=== PATIENT | male | born 1990 | race Caucasian/White ===

== ENCOUNTER 2017-06-20 02:44 | Emergency (ER) | payer OTHER ==
[~2017-06-20 02:44] MED LIST: ALBUAER INH
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
[2017-06-20 03:53] LABS: BASO % 0.3 %; BASO ABS # 0.03 K/uL (0-0.2); COMPLETE YES; EOS % 0.8 %; IG% 0.3 %; LYMPH % 27.3 %; LYMPH ABS # 2.54 K/uL (1.2-3.4); MEAN CELL VOLUME 86.6 fL (80-100); MEAN CORPUSCULAR HEMOGLOBIN 31.4 pg (25-34); MEAN CORPUSCULAR HGB CONC 36.3 g/dl (32-36); MEAN PLATELET VOLUME 8.8 fL (7.4-10.4); MONO % 7.5 %; NEUT % 63.8 %; PLATELET COUNT 258 K/uL (130-400); RED BLOOD COUNT 4.62 M/uL (4.7-6.1); WHITE BLOOD COUNT 9.31 K/uL (4.8-10.8)
[2017-06-20 04:23] LABS: BLOOD UREA NITROGEN 11 mg/dl (7-18); BUN/CREATININE RATIO 11.7 (10-20); CALCIUM 8.4 mg/dl (8.5-10.1); CARBON DIOXIDE 23 mmol/L (21-32); CHLORIDE 102 mmol/L (98-107); CREATININE 0.95 mg/dl (0.60-1.40); GLUCOSE 112 mg/dl (70-99); POTASSIUM 3.5 mmol/L (3.5-5.1); SODIUM 136 mmol/L (136-145)
[2017-06-20 05:24] VITALS: TEMP 36.4
[2017-06-20] MEDS ORDERED: STR10 PO (06:42)
[2017-06-20] MEDS ORDERED: MULT-506 PO (06:43)
[2017-06-20] MEDS ORDERED: QUET1TAB32 PO (06:43)
[2017-06-20 10:22] VITALS: O2SAT 100
[2017-06-20 10:50] VITALS: BP 117/68; PULSE 94
== END 2017-06-20 10:50 | disposition home or self-care (01) ==
LOC: EDBD 02:44 → C.EDB 02:46
DX: F10.920 Alcohol use, unspecified with intoxication, uncomplicated (principal)

== ENCOUNTER 2017-07-20 14:36 | Emergency (ER) | payer OTHER ==
[~2017-07-20] VITALS: Ht 185.4 cm; Wt 112.9 kg
[~2017-07-20 14:36] MED LIST changes: -ALBUAER INH; +MULT-506 PO; +QUET1TAB32 PO; +STR10 PO
[2017-07-20 14:57] VITALS: TEMP 37; Ht 185.4 cm; Wt 112.9 kg
[2017-07-20] MEDS ORDERED: ATOM60CA3 PO (15:18)
[2017-07-20] MEDS ORDERED: ATOM10CA PO (15:18)
[2017-07-20 16:03] LABS: BASO % 0.3 %; BASO ABS # 0.04 K/uL (0-0.2); COMPLETE YES; EOS % 0.3 %; HEMATOCRIT 41.5 % (42-52); IG% 0.3 %; LYMPH % 13.6 %; LYMPH ABS # 2.01 K/uL (1.2-3.4); MEAN CELL VOLUME 88.7 fL (80-100); MEAN CORPUSCULAR HEMOGLOBIN 32.1 pg (25-34); MEAN CORPUSCULAR HGB CONC 36.1 g/dl (32-36); MEAN PLATELET VOLUME 9.4 fL (7.4-10.4); MONO % 6.7 %; NEUT % 78.8 %; PLATELET COUNT 291 K/uL (130-400); RED BLOOD COUNT 4.68 M/uL (4.7-6.1); WHITE BLOOD COUNT 14.78 K/uL (4.8-10.8)
[2017-07-20 16:24] LABS: BUN/CREATININE RATIO 14.1 (10-20); CALCIUM 9.2 mg/dl (8.5-10.1); CREATININE 1.31 mg/dl (0.60-1.40); POTASSIUM 4.2 mmol/L (3.5-5.1)
[2017-07-20 16:27] LABS: ALB/GLOB RATIO 1.2 (0.9-2)
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
[2017-07-20 16:35] VITALS: BP 157/109; PULSE 100; O2SAT 97
[2017-07-20 16:38] LABS: HEPATITIS B AB POS
--- NOTE | 2017-07-29 15:01 | Pharmacy Progress Note ---
ED Pharmacist Progress Note Date of Service: Jul 29, 2017. Received call 1/2 AM asking about 28 day post-exposure prophylaxis for blood exposure that was supposed to be sent to [facility] as patient has not received medications. Reviewed notes from 07/20 visit. Patient had paperwork kit filled out by provider at [facility]. Patient state prescription needs to come from emergency department for shaneka lockwood. Called [facility] [phone] and was transferred to "[facility]". He informed me that the kit was received and paperwork was signed but there were no prescriptions listed on the form they received. He said there are two boxes for 7 day and 28 days that need to be checked and the regimen to be prescribed written underneath. Apparently this was not filled out. I called Herrera to inform him of this. At this time I suggested the provider from the [facility] needed to fill out the form. He informed me that for lissas mandie the ER physician needed to fill out. I called to talk to "Chele" again. [facility] needs the original paperwork kit filled out on the correct forms for Babatunde lockwood to pay for the prescriptions and cannot take a verbal order. The patient has taken Raltegravir (Isentress) 400 mg BID and Truvada (tenofovir/emtricitabine) 1 tablet daily since the . Patient says he has an additional two day supply from work(07/29, 07/30). He will need these medications continued through the (17 more days starting the ) for a 28 day regimen. There are no interactions with his current medications and no problems with renal impairment. Called patient to let him know that it is typically done by the provider who is prescribing the medication and if he needed us to prescribe it he would need to come back into the ED so the provider could fill out the paperwork. He said that the post-exposure professional at work had called him asking why he had taken two more kits from work since he had not received the medications. The post-exposure professional told him to see a worksus comp doctor on 07/29/17 for prescription since he had not received the medications. Patient inquired about ED copay if he were to return- I let him know that if he were to come back to the ER that he would likely be charged his copay for the emergency department but could talk to case management since the situation was atypical. He asked if the forms could be faxed to ED and then filled out by provider- I said provider would likely want to see him. He said he would follow-up with the worker's comp physician but may come back in if he cannot get the prescription from him.
== END 2017-07-20 16:39 | disposition home or self-care (01) ==
LOC: C.EDB 14:37 → C.EDD 16:39
DX: Z77.21 Contact with and (suspected) exposure to potentially hazardous body fluids (principal)

== ENCOUNTER → 2017-08-20 | Outpatient (CLI) | payer OTHER ==
[~2017-08-20] MED LIST changes: +ATOM10CA PO; +ATOM60CA3 PO; -STR10 PO
[2017-08-20 10:43] LABS: BASO % 0.5 %; BASO ABS # 0.05 K/uL (0-0.2); EOS % 1.5 %; EOS ABS # 0.17 K/uL (0-0.5); HEMATOCRIT 42.8 % (42-52); HEMOGLOBIN 15.5 g/dL (14.0-18.0); IG# 0.09 K/uL (0.00-0.02); LYMPH % 25.5 %; LYMPH ABS # 2.81 K/uL (1.2-3.4); MEAN CELL VOLUME 89.9 fL (80-100); MEAN CORPUSCULAR HEMOGLOBIN 32.6 pg (25-34); MEAN CORPUSCULAR HGB CONC 36.2 g/dl (32-36); MEAN PLATELET VOLUME 10.4 fL (7.4-10.4); NEUT % 61.7 %; NEUT ABS # 6.82 K/uL (1.4-6.5); PLATELET COUNT 251 K/uL (130-400); RED CELL DISTRIBUTION WIDTH CV 13.3 % (11.5-14.5); RED CELL DISTRIBUTION WIDTH SD 43.7 fL (36.4-46.3); WHITE BLOOD COUNT 11.04 K/uL (4.8-10.8)
[2017-08-20 11:39] LABS: ALKALINE PHOSPHATASE 97 U/L (45-117); ALT/SGPT 98 U/L (12-78); AST/SGOT 51 U/L (15-37); BLOOD UREA NITROGEN 16 mg/dl (7-18); CARBON DIOXIDE 27 mmol/L (21-32); CREATININE 1.14 mg/dl (0.60-1.40); GLUCOSE 105 mg/dl (70-99); POTASSIUM 4.4 mmol/L (3.5-5.1); SODIUM 134 mmol/L (136-145); TOTAL PROTEIN 7.7 gm/dl (6.4-8.2)
== END | disposition home or self-care (01) ==
LOC: C.LABSPEC 10:32
PROVIDERS: ATTEND Nurse Practitioner Family
DX: Z77.21 Contact with and (suspected) exposure to potentially hazardous body fluids (principal)